=== PATIENT | female | born 1990 | race American Indian/Alaskan Native ===

== ENCOUNTER 2016-06-28 14:27 | Outpatient (CLI) | payer MEDICAID ==
[2016-06-28 15:33] LABS: Hematocrit 32.9 % (30.3-42.9); Hemoglobin 11.2 gm/dl (10.1-14.3); Mean Corpuscular HGB Conc 34 % (30-34); Mean Corpuscular Hemoglobin 29 pg (28-32); Mean Corpuscular Volume 86 fl (79-97); Platelet Count 176 K/mm3 (140-440); Red Blood Count 3.81 M/mm3 (3.65-5.03); Red Cell Distribution Width 13.2 % (13.2-15.2); White Blood Count 6.2 K/mm3 (4.5-11.0)
[2016-06-28 15:48] LABS: Lactate Dehydrogenase 171 units/L (91-180); Uric Acid 5.5 mg/dL (3.5-7.6)
--- NOTE | 2016-06-28 15:52 | Ultrasound Report ---
BIOPHYSICAL PROFILE: INDICATION: well being. COMPARISON: None similar during this gestation. TECHNIQUE: Transabdominal ultrasound with Doppler interrogation. 2 - breathing movements 2 - movements 2 - posture and tone 2 - Qualitative amniotic fluid volume 8 - TOTAL SCORE OF POSSIBLE 8 Heart Rate (bpm) 166
--- NOTE | 2016-06-28 15:53 | Ultrasound Report ---
OB LIMITED INDICATION: well being, TK. COMPARISON: None similar during this gestation. TECHNIQUE: Transabdominal grayscale ultrasound with Doppler interrogation. Gestation: Mello Position: Cephalic Amniotic Fluid: WNL (7-24 cm) TK = 14.2 cm Heart Rate: 143 BPM
[2016-06-28 15:55] LABS: Bilirubin,Urine NEG (Negative); Blood,Urine NEG (Negative); Ketones,Urine NEG (Negative); Leukocyte Esterase,Urine NEG (Negative); Nitrite,Urine NEG (Negative); Protein,Urine <15 mg/dL mg/dL (Negative); Urobilinogen,Urine < 2.0 mg/dL (<2.0); WBC,Urine < 1.0 /HPF (0.0-6.0)
[2016-06-28 18:01] VITALS: BP 130/98
== END 2016-06-28 18:15 | disposition home or self-care (01) ==
LOC: TRG 14:27
PROVIDERS: ATTEND Obstetrics & Gynecology
DX: O47.03 False labor before 37 completed weeks of gestation, third trimester (principal); Z3A.33 33 weeks gestation of pregnancy
CPT/HCPCS: 36415; 59025; 76815; 76819; 81001; 82565; 83615; 84450; 84460; 84550; 85027